=== PATIENT | female | born 1945 | race Caucasian/White ===

== ENCOUNTER → 2024-03-22 | Outpatient (CLI) | payer MEDICARE, SELFPAY ==
[2024-03-22 11:51] LABS: Collection Type, Urine Clean Catch
[2024-03-22 12:27] LABS: Amorphous Crystals,Urine Present (Absent); Bilirubin,Urine Negative (Negative); Blood,Urine Negative (Negative); Clarity,Urine Clear (Clear/Hazy); Color,Urine Yellow (Lt Yel-Yel); Glucose, Urine Negative (Negative); Hyaline Casts,Urine < 1 /hpf (0-1); Ketones,Urine Negative (Negative); Leukocyte Esterase,Urine Negative (Negative); Nitrite,Urine Negative (Negative); Protein,Urine Negative (Neg - Trace); RBC,Urine 1 /hpf (0-3); Specific Gravity,Urine 1.013 (1.001-1.035); Squamous Epithelial Cell,Urine < 1 /hpf (0-5); Urobilinogen,Urine Negative mg/dL (0.0-1.0); WBC,Urine 2 /hpf (0-5)
[2024-03-22 12:42] LABS: Alanine Aminotransferase 36 U/L (10-49); Albumin, Serum 4.5 gm/dL (3.4-4.8); Alkaline Phosphatase 60 U/L (46-116); Anion Gap 3 (7-16); Aspartate Amino Transferase 35 U/L (0-34); BUN/Creatinine Ratio 19 Ratio (12-20); Bilirubin,Total 0.4 mg/dL (0.3-1.2); Blood Urea Nitrogen 21 mg/dL (9-23); Calcium 10.1 mg/dL (8.3-10.6); Calcium (Corrected) 10.1 mg/dL (8.5-10.1); Cardiac Risk Estimate 3.3 RATIO (3.7-5.6); Chloride 105 mMol/L (98-107); Cholesterol 137 mg/dL (132-200); Creatinine (Component) 1.1 mg/dL (0.6-1.3); Globulin 2.2 gm/dL (2.3-3.5); Glucose 95 mg/dL (74-106); HDL Cholesterol 42 mg/dL (40-60); LDL Cholesterol,Calculated 65 mg/dL (0-130); Osmolality,Calculated 276 (275-295); Potassium 5.5 mMol/L (3.4-5.1); Sodium 137 mMol/L (136-145); Thyroid Stimulating Hormone 1.37 uIU/mL (0.55-4.78); Total Protein 6.7 gm/dL (5.7-8.2); Triglycerides 151 mg/dL (30-150); eGFR 52 See Note
[2024-03-22 13:18] LABS: Parathyroid Hormone Intact 51.2 pg/ml (18.5-88.0)
== END | disposition home or self-care (01) ==
PROVIDERS: PCP Internal Medicine; Referring Provider Internal Medicine; Visit Provider Internal Medicine
DX: I12.9 Hypertensive chronic kidney disease with stage 1 through stage 4 chronic kidney disease, or unspecified chronic kidney disease (principal); N18.30 Chronic kidney disease, stage 3 unspecified; E78.5 Hyperlipidemia, unspecified; E03.9 Hypothyroidism, unspecified
CPT/HCPCS: 36415; 80053; 80061; 81001; 83970; 84443; 85025

== ENCOUNTER → 2024-07-03 | Outpatient (CLI) | payer OTHER, SELFPAY ==
[2024-07-03 13:39] LABS: Alanine Aminotransferase 17 U/L (10-49); Albumin, Serum 4.8 gm/dL (3.4-4.8); Albumin/Globulin Ratio 2.4 (1.2-2.2); Alkaline Phosphatase 61 U/L (46-116); Anion Gap 9 (7-16); Aspartate Amino Transferase 24 U/L (0-34); BUN/Creatinine Ratio 24 Ratio (12-20); Bilirubin,Total 0.4 mg/dL (0.3-1.2); Blood Urea Nitrogen 29 mg/dL (9-23); Calcium 10.5 mg/dL (8.3-10.6); Calcium (Corrected) 10.5 mg/dL (8.5-10.1); Carbon Dioxide 25.4 mMol/L (20.0-31.0); Chloride 105 mMol/L (98-107); Creatinine (Component) 1.2 mg/dL (0.6-1.3); Glucose 87 mg/dL (74-106); Osmolality,Calculated 282 (275-295); Potassium 5.1 mMol/L (3.4-5.1); Sodium 139 mMol/L (136-145); Total Protein 6.8 gm/dL (5.7-8.2); eGFR 47 See Note
== END | disposition home or self-care (01) ==
LOC: COPL 12:45
PROVIDERS: PCP Internal Medicine; Referring Provider Internal Medicine; Visit Provider Internal Medicine
DX: I12.9 Hypertensive chronic kidney disease with stage 1 through stage 4 chronic kidney disease, or unspecified chronic kidney disease (principal); N18.30 Chronic kidney disease, stage 3 unspecified; E87.6 Hypokalemia
CPT/HCPCS: 36415; 80053

== ENCOUNTER → 2024-08-16 | Outpatient (CLI) | payer OTHER, SELFPAY ==
--- NOTE | 2024-08-16 10:18 | XR_ITS ---
Examination: Knee, right , 3 views Technique: Knee AP, lateral, oblique 3 views Date and time of exam: August 16, 2024 1046 hours INDICATIONS: Injury to the knee one month ago, knee pain. 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
== END | disposition home or self-care (01) ==
LOC: CDIM 10:04
PROVIDERS: PCP Internal Medicine; Referring Provider Internal Medicine; Visit Provider Internal Medicine
DX: S89.91XA Unspecified injury of right lower leg, initial encounter (principal); X58.XXXA Exposure to other specified factors, initial encounter
CPT/HCPCS: 73562

== ENCOUNTER → 2024-11-06 | Outpatient (CLI) | payer OTHER, SELFPAY ==
--- NOTE | 2024-11-06 10:42 | XR_ITS ---
Examination:Right hip AP, lateral, AP pelvis 3 views Technique: Hip AP lateral, AP pelvis, 3 views Exam date and time:November 06, 2024 1052 hours INDICATIONS: Patient fell 5 days ago with injury to the right hip, right hip pain. FINDINGS: Prominent osteopenia No right hip fracture or dislocation Left hip bones of the pelvis intact Moderate narrowing hip joints IMPRESSION: No acute hip or pelvic fracture.
--- NOTE | 2024-11-06 10:42 | XR_ITS ---
Examination: Right elbow 3 views Technique: Elbow AP, oblique, lateral 3 views Exam date and time: November 06, 2024 1052 hours INDICATIONS: Patient fell 5 days ago with injury to the elbow, elbow pain. FINDINGS: Moderate osteopenia. No fracture or dislocation IMPRESSION: No fracture dislocation.
== END | disposition home or self-care (01) ==
PROVIDERS: PCP Internal Medicine; Referring Provider Internal Medicine; Visit Provider Internal Medicine
DX: S79.911A Unspecified injury of right hip, initial encounter (principal); S59.901A Unspecified injury of right elbow, initial encounter; W19.XXXA Unspecified fall, initial encounter
CPT/HCPCS: 73080; 73502

== ENCOUNTER 2024-11-11 12:28 | Emergency (ER) | payer OTHER, SELFPAY ==
[2024-11-11 12:47] VITALS: BP 114/67; PULSE 71; RESP 18; TEMP 37.2; O2SAT 98; BMI 26.5
--- NOTE | 2024-11-11 13:01 | XR_ITS ---
Examination: CT pelvis without intravenous contrast. 2-D sagittal and coronal reconstructions. Date and time of exam:November 11, 2024 1317 hrs. Indications: Fell last week with injury to the right hip, right hip pain. CTDI: vol (mGy) :9.14. DLP: (mGycm) : 270. Technique: Multiple 3 mm axial sections of the pelvis have been obtained with the 64 slice high resolution scanner. 2-D sagittal and coronal reconstructions. Low dose protocols were performed. One or more of the following dose reduction techniques were used; automated exposure control, adjustment of the mA and/or KV according to patient size, use of iterative reconstruction technique. Findings: No pelvic hematoma Colonic diverticulosis Urinary bladder intact. Nondisplaced fracture left inferior pubic ramus Nondisplaced fracture left superior pubic ramus near the acetabulum, axial image 22 Hips appear intact Impression: The fractures left superior inferior pubic rami without significant displacement No hip fractures depicted
--- NOTE | 2024-11-11 13:01 | XR_ITS ---
Examination: CT lumbar spine, without contrast. 2-D sagittal reconstructions. 2-D coronal reconstructions. 3-D reconstructions. Date and time of exam:November 11, 2024 1615 hrs. Indications: Patient fell last week with injury to the lower back, lower back pain CTDI: vol (mGy):49.9 DLP: (mGycm):972 Technique: Multiple 1.25 mm axial sections of the lumbar spine without intravenous contrast have been obtained. 2-D sagittal and coronal reconstructions have been obtained. 3-D reconstructions have been obtained. Low dose protocols were performed. One or more of the following dose reduction techniques were used; automated exposure control, adjustment of the mA and/or KV according to patient size, use of iterative reconstruction technique. Findings: Severe osteopenia. Lumbar vertebral body compression fracture Use advanced lumbar degenerative disc disease Lumbar pedicles, laminae, transverse and posterior spinous processes intact L4-L5 moderate to severe overall spinal stenosis, axial image 75, 3 mm central lumbar disc bulge, facet arthropathy and thickening of ligamentum flavum with moderate bilateral L4 ganglionic compression Impression: No acute lumbar fracture Moderate to severe L4-L5 overall spinal stenosis including moderate bilateral L4 ganglionic compression
--- NOTE | 2024-11-11 13:02 | PD.EDRME ---
Rapid Medical Screening Exam RME Arrival date/time: 11/11/24 12:28 79-year-old female presents to the emergency department today stating that she had a fall on Wednesday patient reports since then she been having pain in her pelvis with difficulty ambulating Chief Complaint: Hip Injury/Pain Vital signs: Vital Signs Temperature 99.0 F 11/11/24 12:47 Pulse Rate 71 11/11/24 12:47 Respiratory Rate 18 11/11/24 12:47 Blood Pressure 114/67 11/11/24 12:47 Pulse Oximetry (%) 98 11/11/24 12:47 Oxygen Delivery Method Room Air 11/11/24 12:47
[2024-11-11 13:57] VITALS: BP 144/65; PULSE 67; RESP 18; TEMP 37.2; O2SAT 96
--- NOTE | 2024-11-11 14:37 | PD.EDHIP ---
Lower Extremity Injury RME/HPI General Chief Complaint: Hip Injury/Pain Stated Complaint: RIGHT HIP INJURY POST GRD LVL FALL X 5 DAYS Time Seen by Provider: 11/11/24 14:29 Arrival date/time: 11/11/24 12:28 RME / HPI RME / HPI Narrative: 79-year-old female presents to the emergency department today stating that she had a fall on Wednesday patient reports since then she been having pain in her pelvis with difficulty ambulating. Patient complaining of pain to the right hip, worse with ambulation. Was seen by PCP, an x-ray was done and was told that nothing is broken however if the pain continues was advised to come to the emergency room for CT scan of the hip. Denies any other injury. No LOC. Denies any headache denies any nausea or vomiting denies any neck pain. Patient is not taking any blood thinner. Related Data Home Medications ?Medication ?Instructions ?Recorded ?Confirmed aspirin 81 mg tablet,delayed 1 tab PO DAILY 02/15/18 02/15/18 release cranberry extract 300 mg tablet 300 mg PO QDAY 02/15/18 02/15/18 diphenoxylate-atropine 2.5 1 tab PO QDAY PRN loose stools 02/15/18 02/15/18 mg-0.025 mg tablet levothyroxine 25 mcg tablet 25 mcg PO EVERYOTHERDAY 02/15/18 02/15/18 (Synthroid) levothyroxine 50 mcg tablet 50 mcg PO EVERYOTHERDAY 02/15/18 02/15/18 (Synthroid) magnesium 250 mg tablet 2 tab PO DAILY 02/15/18 02/15/18 omeprazole 10 mg capsule,delayed 10 mg PO QDAY PRN Abdominal 02/15/18 02/15/18 release Discomfort potassium chloride 10 mEq 10 meq PO QDAY 02/15/18 02/15/18 capsule,extended release sertraline 50 mg tablet 50 mg PO QDAY 02/15/18 02/15/18 torsemide 5 mg tablet 5 mg PO BID 02/15/18 02/15/18 valsartan 320 1 tab PO QDAY 02/15/18 02/15/18 mg-hydrochlorothiazide 25 mg tablet Previous Rx's ?Medication ?Instructions ?Recorded acetaminophen 300 mg-codeine 30 mg 1 tab PO Q8H PRN pain #20 tabs 11/11/24 tablet Allergies Allergy/AdvReac Type Severity Reaction Status Date / Time NKA* Allergy Uncoded 11/11/24 12:31 Review of Systems Review of Systems Narrative Review of Systems: Review of system reviewed and within normal limits except mentioned in HPI ED Exam Narrative Physical exam: VITAL SIGNS: Reviewed. GENERAL APPEARANCE: Alert and interactive, follows commands, no acute distress, HEAD AND FACE: Non-traumatic. ENT: PERRL, pink conjunctivitis, eyelid no trauma, Mucous membrane moist. NECK: Supple, nontender, no nuchal rigidity. CHEST: No tenderness, no crepitus, no paradoxical movement, no retractions. LUNGS: Clear, well ventilated, symmetric, no rales, no wheezing, no ronchi, no stridor, good breath sounds bilaterally. HEART: Regular rate, regular rhythm, no murmur, no gallops. ABDOMEN: Soft, positive bowel sounds, nondistended, no guarding, nontender, no rebound, no masses, RECTAL: Deferred. GENITAL: Deferred. NEUROLOGICAL: Gross motor function intact sensory function intact, Appropriate for age. MUSCULOSKELETAL: low back nontender, full range of motion. EXTREMITIES: Right hip tenderness, no deformity no bruising, full range of motion. Distal neurovascular status intact bilateral lower extremity. SKIN: Color pink, dry, no rash, no lacerations, no abrasions, no contusions. LYMPHATICS: Deferred. Course Quality Measures none Orders Category Date Time Status CT lumbar spine wo con Stat Exams 11/11/24 13:[address] pelvis wo con Stat Exams 11/11/24 13:01 Completed ACETAMINOPHEN w/COD 300-30 [Tylenol w/Cod #3] Med 11/11/24 14:36 Discontinued 1 tab PO X1 ONE Vital Signs Vital signs: Vital Signs Temperature 99.0 F 11/11/24 12:47 Pulse Rate 71 11/11/24 12:47 Respiratory Rate 18 11/11/24 12:47 Blood Pressure 114/67 11/11/24 12:47 Pulse Oximetry (%) 98 11/11/24 12:47 Oxygen Delivery Method Room Air 11/11/24 12:47 Extremity Injury, Lower MDM Narrative MDM Narrative:: 79-year-old female presents to the emergency department today stating that she had a fall on Wednesday patient reports since then she been having pain in her pelvis with difficulty ambulating. Patient complaining of pain to the right hip, worse with ambulation. Was seen by PCP, an x-ray was done and was told that nothing is broken however if the pain continues was advised to come to the emergency room for CT scan of the hip. Denies any other injury. No LOC. Denies any headache denies any nausea or vomiting denies any neck pain. Patient is not taking any blood thinner. CT scan of the lumbar spine showed no acute pathology noted. CT scan of the pelvis showed The fractures left superior inferior pubic rami without significant displacement No hip fractures depicted Results discussed with the patient. Patient will be sent home on Tylenol with codeine. Patient was advised to be careful with taking Tylenol codeine because sometimes they will make her dizzy. And she needs to have somebody especially with trying to ambulate. Patient and family agrees with the plan Patient appears nontoxic and hemodynamically stable .Decision to discharge the patient. The patient/family was given an opportunity to ask questions and understood their discharge instructions. Discharge instructions specifically included follow up provider and time frame, current and/or new medications and possible side effects, indications for sooner follow up or return to the emergency department, and the expected course of current diagnosis. Patient reports feeling better as well and giving evidence of significant clinical improvement, I believe patient is now a candidate for discharge. Patient data External records reviewed:: None Clinical information provided by:: patient and family Social determinants that could affect healthcare access:: none Patient has the following chronic illnesses:: Hypertension How is presenting disease/condition affected by chronic disease/condition?: uneffected by Evaluation data The following diagnostics were reviewed and interpreted by me:: radiology exam(s) Lab and/or radiology exams considered but not ordered:: None Interpretation Summary: See results MDM Medications / Prescriptions Medications or Prescriptions considered but not ordered:: None Medication administrations:: Medication Administration History Discontinued Medications Acetaminophen/Codeine Phosphate (Acetaminophen W/Cod 300-30 Tablet) 1 tab PO X1 ONE Stop: 11/11/24 14:37 Last Admin: 11/11/24 14:43 Dose: 1 tab Documented By: GABBIE Tylenol with codeine Consultations Consultation(s) initiated? (list below): No Diagnosis Extremity Injury, Lower Differential Diagnosis: fracture of femur and fracture of hip Most likely diagnosis given after review of the tests above:: Inferior ramus fracture status post fall, pelvic fracture Admission Indicated Admission indicated?: not indicated Admission Request Was there a request for admission?: No Disposition Plan Disposition Plan: Discharge Discharge Attestation Discharge Attestation: The patient and all family members were given an opportunity to ask questions and understood the discharge instructions. Discharge instructions specifically effects, indications for sooner follow up or return to the emergency department, and the expected course of current diagnosis. Patient condition: Stable Discharge Plan Plan Patient Disposition: HOME (Self Care) Discharge Disposition comment: Stable Prescriptions/Referrals Prescriptions/Med Rec: New acetaminophen-codeine 300-30 mg tablet 1 tab PO Q8H PRN (Reason: pain) Qty: 20 0RF No Action diphenoxylate-atropine 2.5-0.025 mg Tablet 1 tab PO QDAY PRN (Reason: loose stools) levothyroxine [Synthroid] 25 mcg Tablet 25 mcg PO EVERYOTHERDAY torsemide 5 mg Tablet 5 mg PO BID levothyroxine [Synthroid] 50 mcg Tablet 50 mcg PO EVERYOTHERDAY valsartan-hydrochlorothiazide 320-25 mg Tablet 1 tab PO QDAY potassium chloride 10 mEq Capsule, Extended Release 10 meq PO QDAY cranberry extract 300 mg Tablet 300 mg PO QDAY aspirin 81 mg Tablet,Delayed Release (Dr/Ec) 1 tab PO DAILY omeprazole 10 mg Capsule,Delayed Release(Dr/Ec) 10 mg PO QDAY PRN (Reason: Abdominal Discomfort) sertraline 50 mg Tablet 50 mg PO QDAY magnesium 250 mg Tablet 2 tab PO DAILY Referrals: Greg Rapp MD [Primary Care Provider] - In 1 week Problem List Clinical Impression: Closed pelvic fracture Patient/Caregiver Discharge Instructions Discharge Activity: activity as tolerated Education Materials: How Bones Heal Additional Instructions: Thank you for the opportunity for serving you today. You are stable for discharged . You are advised to: Follow-up with your PCP in 1 to 2 days Return to ED for worsening of symptoms Increase oral fluids Take medication as prescribed CT scan of your hip showed no fracture of the pelvis, however there is nondisplaced fracture of the inferior ramus of the left pelvis. This type of fracture will heal on its own. You will be discharged home on Tylenol with codeine, sometimes it will make you dizzy, you need to make sure somebody is helping you are trying to ambulate. Print Language: Czech Stand Alone Forms: Elsy Award Info., Patient Portal Info Letter PA/COLLEGE DEAN Supervising Physician PA/COLLEGE DEAN Supervising Physician: MD Kim
[2024-11-11] MEDS: ACETAMINOPHEN w/COD 300-30 TABLET 1 TAB PO (14:43)
== END 2024-11-11 15:50 | disposition home or self-care (01) ==
PROVIDERS: Emergency Provider Family Medicine; PCP Internal Medicine
DX: S32.592A Other specified fracture of left pubis, initial encounter for closed fracture (principal); S39.92XA Unspecified injury of lower back, initial encounter; W18.30XA Fall on same level, unspecified, initial encounter
CPT/HCPCS: 72131; 72192; 99283; A9270

== ENCOUNTER → 2024-12-04 | Outpatient (CLI) | payer OTHER, SELFPAY ==
[2024-12-04 15:41] LABS: Collection Type, Urine Clean Catch
[2024-12-04 16:02] LABS: Basophils # (Auto) 0.0 Thou/mm3 (0.0-0.2); Basophils % (Auto) 1 % (0-2.5); Eosinophils # (Auto) 0.0 Thou/mm3 (0.0-0.5); Eosinophils % (Auto) 1 % (0-10); Hematocrit 38.7 % (36.0-46.0); Hemoglobin 12.8 g/dL (12.0-16.0); Immature Granulocytes Auto 0.02 Thou/mm3 (0.00-0.00); Lymphocytes # (Auto) 1.4 Thou/mm3 (1.0-4.8); Lymphocytes % (Auto) 27 % (10-50); Mean Corpuscular HGB Conc 33.1 g/dl (31.0-37.0); Mean Corpuscular Hemoglobin 29.8 pg (25.0-35.0); Mean Corpuscular Volume 90 fL (80-100); Monocytes # (Auto) 0.4 Thou/mm3 (0.0-0.8); Monocytes % (Auto) 7 % (0-12); Neutrophils # (Auto) 3.4 Thou/mm3 (1.8-7.7); Neutrophils % (Auto) 64 % (37-80); Nucleated Red Blood Cell # 0.00 Thou/mm3 (0.00-0.00); Nucleated Red Blood Cell % 0 /100 WBC (0); Platelet Count 205 Thou/mm3 (140-440); RDW Standard Deviation 38.7 fL (36.4-46.3); Red Blood Count 4.30 Miln/mm3 (4.00-5.20); White Blood Count 5.3 Thou/mm3 (3.6-11.0)
[2024-12-04 16:05] LABS: Parathyroid Hormone Intact 48.5 pg/ml (18.5-88.0)
[2024-12-04 16:06] LABS: Glucose Estimated Average 108 mg/dL (80-131); Hemoglobin A1C 5.4 % Hgb (4.8-6.0)
[2024-12-04 16:09] LABS: Alanine Aminotransferase 10 U/L (10-49); Albumin, Serum 4.4 gm/dL (3.4-4.8); Albumin/Globulin Ratio 1.9 (1.2-2.2); Alkaline Phosphatase 104 U/L (46-116); Anion Gap 8 (7-16); Aspartate Amino Transferase 22 U/L (0-34); BUN/Creatinine Ratio 11 Ratio (12-20); Bilirubin,Total 0.4 mg/dL (0.3-1.2); Blood Urea Nitrogen 13 mg/dL (9-23); Calcium 9.9 mg/dL (8.3-10.6); Calcium (Corrected) 9.9 mg/dL (8.5-10.1); Carbon Dioxide 23.8 mMol/L (20.0-31.0); Cardiac Risk Estimate 3.0 RATIO (3.7-5.6); Chloride 107 mMol/L (98-107); Cholesterol 166 mg/dL (132-200); Creatinine (Component) 1.2 mg/dL (0.6-1.3); Globulin 2.3 gm/dL (2.3-3.5); Glucose 89 mg/dL (74-106); HDL Cholesterol 56 mg/dL (40-60); LDL Cholesterol,Calculated 92 mg/dL (0-130); Osmolality,Calculated 276 (275-295); Potassium 4.8 mMol/L (3.4-5.1); Sodium 139 mMol/L (136-145); Thyroid Stimulating Hormone 1.49 uIU/mL (0.55-4.78); Total Protein 6.7 gm/dL (5.7-8.2); Triglycerides 92 mg/dL (30-150); Uric Acid 6.5 mg/dL (3.1-7.8); eGFR 46 See Note
[2024-12-04 16:10] LABS: Vitamin B12 1666 pg/mL (211-911); Vitamin D 25 Hydroxy Total 54.3 ng/mL (7.3-40.2)
[2024-12-04 16:16] LABS: Bilirubin,Urine Negative (Negative); Blood,Urine Negative (Negative); Color,Urine Yellow (Lt Yel-Yel); Glucose, Urine Negative (Negative); Hyaline Casts,Urine 1 /hpf (0-1); Ketones,Urine Negative (Negative); Leukocyte Esterase,Urine Positive (Negative); Nitrite,Urine Negative (Negative); PH,Urine 5.5 (5.0-7.0); Protein,Urine Negative (Neg - Trace); RBC,Urine 5 /hpf (0-3); Specific Gravity,Urine 1.019 (1.001-1.035); Squamous Epithelial Cell,Urine 1 /hpf (0-5); Transitional Epi Cells,Urine 1 /hpf (0-5); Urobilinogen,Urine Negative mg/dL (0.0-1.0); WBC,Urine 41 /hpf (0-5)
[2024-12-04 16:34] LABS: Clarity,Urine Hazy (Clear/Hazy)
== END | disposition home or self-care (01) ==
PROVIDERS: PCP Internal Medicine; Referring Provider Internal Medicine; Visit Provider Internal Medicine
DX: I12.9 Hypertensive chronic kidney disease with stage 1 through stage 4 chronic kidney disease, or unspecified chronic kidney disease (principal); N18.30 Chronic kidney disease, stage 3 unspecified; E78.5 Hyperlipidemia, unspecified; E03.9 Hypothyroidism, unspecified
CPT/HCPCS: 36415; 80053; 80061; 81001; 82306; 82607; 83036; 83970; 84443; 84550; 85025

== ENCOUNTER → 2025-02-06 | Outpatient (CLI) | payer OTHER, SELFPAY ==
[2025-02-06 09:59] LABS: Collection Type, Urine Clean Catch
[2025-02-06 10:23] LABS: Basophils # (Auto) 0.0 Thou/mm3 (0.0-0.2); Basophils % (Auto) 1 % (0-2.5); Eosinophils # (Auto) 0.1 Thou/mm3 (0.0-0.5); Eosinophils % (Auto) 2 % (0-10); Hematocrit 41.7 % (36.0-46.0); Hemoglobin 13.9 g/dL (12.0-16.0); Immature Granulocytes Auto 0.01 Thou/mm3 (0.00-0.00); Lymphocytes # (Auto) 1.3 Thou/mm3 (1.0-4.8); Lymphocytes % (Auto) 31 % (10-50); Mean Corpuscular HGB Conc 33.3 g/dl (31.0-37.0); Mean Corpuscular Hemoglobin 29.7 pg (25.0-35.0); Mean Corpuscular Volume 89 fL (80-100); Monocytes # (Auto) 0.3 Thou/mm3 (0.0-0.8); Monocytes % (Auto) 8 % (0-12); Neutrophils # (Auto) 2.5 Thou/mm3 (1.8-7.7); Neutrophils % (Auto) 58 % (37-80); Nucleated Red Blood Cell # 0.00 Thou/mm3 (0.00-0.00); Nucleated Red Blood Cell % 0 /100 WBC (0); Platelet Count 196 Thou/mm3 (140-440); RDW Standard Deviation 42.7 fL (36.4-46.3); Red Blood Count 4.68 Miln/mm3 (4.00-5.20); White Blood Count 4.3 Thou/mm3 (3.6-11.0)
[2025-02-06 10:28] LABS: Bilirubin,Urine Negative (Negative); Blood,Urine Negative (Negative); Clarity,Urine Clear (Clear/Hazy); Color,Urine Yellow (Lt Yel-Yel); Glucose, Urine Negative (Negative); Ketones,Urine Negative (Negative); Leukocyte Esterase,Urine Positive (Negative); Nitrite,Urine Negative (Negative); PH,Urine 6.0 (5.0-7.0); Protein,Urine Negative (Neg - Trace); RBC,Urine 2 /hpf (0-3); Specific Gravity,Urine 1.018 (1.001-1.035); Squamous Epithelial Cell,Urine 1 /hpf (0-5); Urobilinogen,Urine Negative mg/dL (0.0-1.0); WBC,Urine 4 /hpf (0-5)
[2025-02-06 10:37] LABS: Glucose Estimated Average 100 mg/dL (80-131); Hemoglobin A1C 5.1 % Hgb (4.8-6.0); Parathyroid Hormone Intact 42.5 pg/ml (18.5-88.0)
[2025-02-06 10:42] LABS: Alanine Aminotransferase 18 U/L (10-49); Albumin, Serum 4.5 gm/dL (3.4-4.8); Albumin/Globulin Ratio 2.0 (1.2-2.2); Alkaline Phosphatase 67 U/L (46-116); Anion Gap 8 (7-16); Aspartate Amino Transferase 26 U/L (0-34); BUN/Creatinine Ratio 15 Ratio (12-20); Bilirubin,Total 0.5 mg/dL (0.3-1.2); Blood Urea Nitrogen 20 mg/dL (9-23); Calcium 10.1 mg/dL (8.3-10.6); Calcium (Corrected) 10.1 mg/dL (8.5-10.1); Carbon Dioxide 26.8 mMol/L (20.0-31.0); Cardiac Risk Estimate 3.1 RATIO (3.7-5.6); Chloride 106 mMol/L (98-107); Cholesterol 190 mg/dL (132-200); Creatinine (Component) 1.3 mg/dL (0.6-1.3); Globulin 2.3 gm/dL (2.3-3.5); Glucose 100 mg/dL (74-106); HDL Cholesterol 61 mg/dL (40-60); LDL Cholesterol,Calculated 95 mg/dL (0-130); Osmolality,Calculated 283 (275-295); Potassium 4.6 mMol/L (3.4-5.1); Sodium 141 mMol/L (136-145); Thyroid Stimulating Hormone 1.29 uIU/mL (0.55-4.78); Total Protein 6.8 gm/dL (5.7-8.2); Triglycerides 172 mg/dL (30-150); Uric Acid 7.1 mg/dL (3.1-7.8); eGFR 42 See Note
[2025-02-06 10:45] LABS: Vitamin B12 878 pg/mL (211-911); Vitamin D 25 Hydroxy Total 43.2 ng/mL (7.3-40.2)
== END | disposition home or self-care (01) ==
LOC: COPL 09:31
PROVIDERS: PCP Internal Medicine; Referring Provider Internal Medicine; Visit Provider Internal Medicine
DX: I12.9 Hypertensive chronic kidney disease with stage 1 through stage 4 chronic kidney disease, or unspecified chronic kidney disease (principal); N18.30 Chronic kidney disease, stage 3 unspecified; E78.5 Hyperlipidemia, unspecified; E03.9 Hypothyroidism, unspecified
CPT/HCPCS: 36415; 80053; 80061; 81001; 82306; 82607; 83036; 83970; 84443; 84550; 85025

== ENCOUNTER → 2025-02-16 | Outpatient (CLI) | payer OTHER, SELFPAY ==
--- NOTE | 2025-02-16 13:00 | XR_ITS ---
Examination: Bone densitometry Date and time of exam: February 16, 2025, 1307 hours INDICATIONS: Hysterectomy age 67, levothyroxine 15 years, history postmenopausal pelvic fracture Technique: Lumbar spine and hip total bone mineralization values of an calculated. Peak reference and age match control results have been displayed. Findings: Lumbar spine total bone mineralization is 1.217 gm/cm2. This is 1.5 standard deviations above peak reference. This is 4.1 standard deviations above age-matched controls. Hip total bone mineralization is 0.7720 gm/cm2 This is 1.4 standard deviations below peak reference. This is 0.6 standard deviations above age-matched controls Impression: There is normal mineralization based on lumbar spine measurements. There is osteopenia based on hip measurements Lumbar mineralization is increased 0.3% compared with November 29, 2020 Hip mineralization is decreased 0.5% compared with November 29, 2020
--- NOTE | 2025-02-16 13:20 | XR_ITS ---
Examination: Screening digital mammography, bilateral Computer aided detection 3-D breast Tomosynthesis, bilateral Date and time of exam: 02/16/2025, 12:48 p.m. Comparisons: April 2017 through January 2023 Indications: Screening Technique: Nonmagnified MLO, CC views of the breasts to been obtained, reconstructed from 3-D Tomosynthesis images. R2 computer aided detection program utilized for evaluation of suspicious masses and/or abnormal calcifications. 3-D Tomosynthesis images obtained. Technologist: Findings: There are scattered areas of fibroglandular density. No evidence of abnormal masses or suspicious calcifications. Impression: BI-RADS category 1: Negative findings (within normal) Recommend 1 year follow-up mammogram
== END | disposition home or self-care (01) ==
LOC: CDIM 12:41
PROVIDERS: Referring Provider Internal Medicine; Visit Provider Internal Medicine
DX: Z12.31 Encounter for screening mammogram for malignant neoplasm of breast (principal); R92.313 Mammographic fatty tissue density, bilateral breasts; M85.89 Other specified disorders of bone density and structure, multiple sites
CPT/HCPCS: 77063; 77067; 77080